=== PATIENT | female | born 1965 ===

== ENCOUNTER → 2018-07-16 | Outpatient (CLI) | payer OTHER ==
[~2018-07-16] MED LIST: ATEN-65 PO; METO50TA19 PO
--- NOTE | 2018-07-16 14:24 | EKG ---
FACILITY: [facility] PATIENT NAME: ANGELES DESOUZA : [id number] MR: [id number] V: [id number] EXAM DATE: ORDERING PHYSICIAN: RODRIGO PEOPLES TECHNOLOGIST: DANNA Test Reason : Blood Pressure : / mmHG Vent. Rate : 084 BPM Atrial Rate : 084 BPM P-R Int : 146 ms QRS Dur : 086 ms QT Int : 380 ms P-R-T Axes : 053 055 009 degrees QTc Int : 449 ms Normal sinus rhythm Nonspecific ST abnormality Abnormal ECG No previous ECGs available Confirmed by MARY CLARK ([id number]) on 07/17/2018 6:25:08 AM Referred By: SHELTON Confirmed By:MARY CLARK
== END ==
LOC: RESP 13:27
PROVIDERS: ATTEND Emergency Medicine
DX: R94.31 Abnormal electrocardiogram [ECG] [EKG] (principal)

== ENCOUNTER → 2018-11-08 | Outpatient (CLI) | payer OTHER ==
[~2018-11-08] MED LIST changes: +ATEN-1 PO
[2018-11-08 09:39] LABS: PLATELET COUNT, AUTOMATED 310 K/uL (150-450)
== END ==
LOC: LAB 08:30
PROVIDERS: ATTEND Emergency Medicine
DX: I10 Essential (primary) hypertension (principal)
CPT/HCPCS: 36415; 82040; 82247; 82310; 82374; 82435; 82465; 82565; 82607; 82947; 83036; 83718; 84075; 84132; 84155; 84295; 84443; 84450; 84460; 84478; 84520; 85025

== ENCOUNTER → 2018-11-15 | Outpatient (CLI) | payer OTHER ==
--- NOTE | 2018-11-16 15:17 | RT HOLTER TEST ---
[facility] PATIENT NAME: ANGELES DESOUZA : [id number] MR: [id number] V: [id number] EXAM DATE: ORDERING PHYSICIAN: RODRIGO PEOPLES TECHNOLOGIST: AIDA Hook-up date: 2018-11-15 08:13:00 Duration: 27:51:00 Test Indications: IRREGULAR HEART RHYTHM Medications: N/A [id number] QRS complexes 5 Ventricular ectopics which represent <1 % of total QRS comp. 11 Supraventricular ectopics which represent <1 % of total QRS comp. * Paced QRS complexes which represent % of total QRS comp. VENTRICULAR ECTOPY 5 Isolated 0 Bigeminal Cycles 0 Couplets 0 Runs 0 Beats in Runs * Beats LONGEST at * BPM at :: -- * Beats FASTEST at * BPM at :: -- SUPRAVENTRICULAR ECTOPY 9 Isolated 1 Couplets 0 Runs 0 Beats in Runs * Beats LONGEST at * BPM at :: -- * Beats FASTEST at * BPM at :: -- HEART RATES 50 MIN at 04:59:35 2018-11-16 77 AVG 112 MAX at 18:01:34 2018-11-15 LONGEST RR 1.360 secs at 05:14:44 2018-11-16 S-T LEVELS Channel 1 -12.800 mm MIN at 08:13:00 2018-11-15 -12.800 mm MAX at 08:13:00 2018-11-15 Channel 2 -12.800 mm MIN at 08:13:00 2018-11-15 -12.800 mm MAX at 08:13:00 2018-11-15 Channel 3 -12.800 mm MIN at 08:13:00 2018-11-15 -12.800 mm MAX at 08:13:00 2018-11-15 Sinus rhythm throughout the study. Rare isolated PVC and SVE noted. Negative halter study. Confirmed by Roman Montoya ([id number]) on 11/16/2018 3:17:39 PM Referred By: Overread By: Roman Giles
== END ==
LOC: RESP 07:18
PROVIDERS: ATTEND Emergency Medicine
DX: R94.39 Abnormal result of other cardiovascular function study (principal)
CPT/HCPCS: 93225; 93226